=== PATIENT | female | born 1945 | race Two or more races ===

== ENCOUNTER 2017-09-23 22:28 | Emergency (ER) | payer OTHER, MEDICAID ==
[~2017-09-23] VITALS: Ht 152.4 cm; Wt 64.0 kg
[2017-09-23 23:55] LABS: Basophils # (auto) 0.1 uL; Basophils % (auto) 0.8 % (0.0-2.0); Eosinophils # (auto) 0.4 uL; Eosinophils % (auto) 3.5 % (0.0-7.0); Hematocrit 41.8 % (36.0-46.0); Lymphocytes # (auto) 3.7 uL; Lymphocytes % (auto) 32.8 % (10.0-50.0); Mean Corpuscular Hemoglobin 29.6 pg (28.0-32.0); Mean Corpuscular Hgb Conc. 33.6 g/dL (32.0-36.0); Mean Corpuscular Volume 88.2 fL (80.0-100.0); Neutrophils % (auto) 53.9 % (37.0-80.0); Nucleated Red Blood Cells % 0.1 %; Platelet Count (auto) 241 10^3/uL (140-450); Red Blood Cells 4.74 10^6/uL (4.0-5.20); Red Cell Distribution Width 14.2 % (11.8-14.3); White Blood Cell 11.2 10^3/uL (4.4-10.8)
[2017-09-23 23:59] LABS: Alanine Aminotransferase 18 U/L (13-56); Albumin 3.5 g/dL (3.4-5.0); Aspartate Aminotransferase 18 U/L (15-37); BUN/Creatinine Ratio 24.5; Blood Urea Nitrogen 24 mg/dL (7-18); Calcium 9.7 mg/dL (8.5-10.1); Carbon Dioxide 26 mmol/L (21-32); GFR African American 72 mL/min; GFR Non-African American 59 mL/min; Glucose 148 mg/dL (74-106)
[2017-09-24 00:02] LABS: Alkaline Phosphatase 125 U/L (45-117); Bilirubin, Total 0.3 mg/dL (0.2-1.0); Chloride 100 mmol/L (98-107); Potassium 4.8 mmol/L (3.5-5.1); Sodium 134 mmol/L (136-145)
[2017-09-24 00:05] LABS: Anion Gap 8 (5-15)
[2017-09-24 00:10] LABS: INR 0.93 (0.9-1.15); Partial Thromboplastin Time 24.3 sec (22.64-33.71); Prothrombin Time 10.1 sec (9.37-12.3)
[2017-09-24 04:08] VITALS: BP 144/68
== END 2017-09-24 04:13 | disposition left against medical advice (07) ==
LOC: ER 22:28
DX: R07.9 Chest pain, unspecified (principal); R00.2 Palpitations; Z53.21 Procedure and treatment not carried out due to patient leaving prior to being seen by health care provider
CPT/HCPCS: 36415; 71046; 80053; 84484; 85025; 85610; 85730; 93005

== ENCOUNTER 2018-10-08 09:20 | Inpatient (IN) | payer OTHER, MEDICAID ==
[~2018-10-08] VITALS: Ht 152.4 cm; Wt 66.8 kg
[2018-10-08 17:20] LABS: Basophils # (auto) 0 uL; Basophils % (auto) 0.2 % (0.0-2.0); Eosinophils # (auto) 0 uL; Eosinophils % (auto) 0.2 % (0.0-7.0); Hematocrit 41.3 % (36.0-46.0); Hemoglobin 13.7 g/dL (12.2-16.2); Lymphocytes # (auto) 0.5 uL; Lymphocytes % (auto) 5.1 % (10.0-50.0); Mean Corpuscular Hemoglobin 29.5 pg (28.0-32.0); Mean Corpuscular Hgb Conc. 33.2 g/dL (32.0-36.0); Mean Corpuscular Volume 88.7 fL (80.0-100.0); Monocytes # (auto) 0.7 uL; Monocytes % (auto) 7.8 % (0.0-12.0); Neutrophils # (auto) 8.2 uL; Neutrophils % (auto) 86.7 % (37.0-80.0); Platelet Count (auto) 204 10^3/uL (140-450); Red Blood Cells 4.66 10^6/uL (4.0-5.20); White Blood Cell 9.4 10^3/uL (4.4-10.8)
[2018-10-08 17:34] LABS: Albumin 3.4 g/dL (3.4-5.0); Calcium 8.8 mg/dL (8.5-10.1); Potassium 3.9 mmol/L (3.5-5.1)
[2018-10-08 17:37] LABS: BUN/Creatinine Ratio 24.4; Bilirubin, Total 0.5 mg/dL (0.2-1.0); Total Protein 7.9 g/dL (6.4-8.2)
[2018-10-08] MEDS ORDERED: methylPREDNISolone SOD SUCC 125 MG/2 ML VL IV ONE (17:45)
[2018-10-08] MEDS ORDERED: ALBUTEROL SULF 2.5 MG/0.5ML(0.5%) NEB SOLN HHN ONE (17:45)
[2018-10-08] MEDS ORDERED: IPRATROPIUM BROM 0.5 MG/2.5ML INH SOL HHN ONE (17:45)
[2018-10-08] MEDS ORDERED: IPRATROPIUM BROM 0.5 MG/2.5ML INH SOL ONE (17:56)
[2018-10-08] MEDS ORDERED: ACETAMINOPHEN 325 MG TAB PO ONE (19:00)
[2018-10-08] MEDS ORDERED: OSELTAMIVIR 30 MG CAP PO ONE (22:00)
[2018-10-08] MEDS ORDERED: ALBUTEROL SULF 2.5 MG/0.5ML(0.5%) NEB SOLN NEB PRN (22:30)
[2018-10-08] MEDS ORDERED: HYDROcodone-ACET 5/325MG TAB PO PRN (22:30)
[2018-10-08] MEDS ORDERED: SODIUM CHLORIDE 0.9% 1,000 ML IV SCH (22:30)
[2018-10-08] MEDS ORDERED: DEXTROSE (50%) 50ML SYRG IV PRN (22:30)
[2018-10-08] MEDS ORDERED: TEMAZEPAM 15 MG CAP PO PRN (22:30)
[2018-10-08] MEDS ORDERED: DOCUSATE SOD 100 MG CAP PO PRN (22:30)
[2018-10-08] MEDS ORDERED: ONDANSETRON HCL 4 MG/2 ML VIAL IV PRN (22:30)
[2018-10-08] MEDS ORDERED: SODIUM CHLORIDE 0.9% 500 ML IV ONE (22:30)
[2018-10-08 23:22] VITALS: BP 108/58
--- NOTE | 2018-10-08 23:52 | NUR ---
MS admit from ER CASSIDY DSOUZA admitted to MS. Patient oriented to GRACIE DIAZ O[facility], primary RN, unit, room, bed, and unit policies regarding patient care and visiting hours. Patient weighed by bedscale and encouraged to call if they need something. All questions and concerns addressed, patient verbalized understanding. Bed in lowest locked position, call light within reach, side rails up x2. Will continue to monitor Q1hr and PRN.
[2018-10-08 23:55] VITALS: BP 103/36
--- NOTE | 2018-10-08 23:55 | NUR ---
UA sent to lab.
[2018-10-09] MEDS ORDERED: InsuLIN REG 1unit/0.01ml Soln (100units/ml) SC SCH
[2018-10-09] MEDS ORDERED: ACCU-CHEK COMFORT CURVE STRIP VI SCH
[2018-10-09 00:30] LABS: Urine Bacteria NONE SEEN /hpf (None Seen); Urine Blood Negative /uL (Negative); Urine Specific Gravity 1.007 (1.001-1.035); Urine WBC <1 /hpf (0 - 5)
[2018-10-09] MEDS ORDERED: LEVOFLOXACIN 500MG 100 ML IV ONE (01:45)
--- NOTE | 2018-10-09 02:00 | NUR ---
Hospitalist paged CHESTER Mathur called re: patient's elevated glucose and pt requesting cough medicine. Waiting for call back. Continue care.
--- NOTE | 2018-10-09 02:33 | NUR ---
Hospitalist returned call WILLOW ANALYST Keavn returned call, updated on patient status and reason for call, new orders received and read back for verification. Continue care.
[2018-10-09] MEDS ORDERED: DEXTROSE (50%) 50ML SYRG IV PRN (02:45)
[2018-10-09] MEDS ORDERED: METF-371 PO (02:45)
[2018-10-09] MEDS: guaiFENesin-DM 100/10mg/5ml SYR PO PRN ×2 (03:01→12:31)
[2018-10-09] MEDS: InsuLIN REG 1unit/0.01ml Soln (100units/ml) SC SCH ×5 (03:55→21:58)
[2018-10-09] MEDS: ACCU-CHEK COMFORT CURVE STRIP VI SCH ×6 (03:55→23:49)
[2018-10-09] MEDS ORDERED: RANI-226 PO (04:06)
[2018-10-09 04:30] LABS: Basophils # (auto) 0 uL; Basophils % (auto) 0.1 % (0.0-2.0); Eosinophils # (auto) 0 uL; Hematocrit 38.3 % (36.0-46.0); Hemoglobin 12.8 g/dL (12.2-16.2); Lymphocytes # (auto) 0.4 uL; Lymphocytes % (auto) 4.8 % (10.0-50.0); Mean Corpuscular Hgb Conc. 33.3 g/dL (32.0-36.0); Monocytes # (auto) 0.3 uL; Monocytes % (auto) 4.3 % (0.0-12.0); Neutrophils # (auto) 6.7 uL; Neutrophils % (auto) 90.8 % (37.0-80.0); Platelet Count (auto) 180 10^3/uL (140-450); Red Blood Cells 4.26 10^6/uL (4.0-5.20); Red Cell Distribution Width 13.9 % (11.8-14.3); White Blood Cell 7.4 10^3/uL (4.4-10.8)
[2018-10-09 04:47] LABS: Calcium 8.6 mg/dL (8.5-10.1); Potassium 4.2 mmol/L (3.5-5.1)
[2018-10-09 04:49] LABS: BUN/Creatinine Ratio 18.6
[2018-10-09 04:56] VITALS: BP 122/58
--- NOTE | 2018-10-09 07:30 | NUR ---
Patient in bed, awake, oriented x4, coughing noted. No acute distress noted. Family member at bedside.
--- NOTE | 2018-10-09 08:10 | NUR ---
Patient went to the bathroom. Patient back to bed. No untoward incident noted.
[2018-10-09] MEDS: ACETAMINOPHEN 325 MG TAB PO PRN ×2 (08:12→17:56)
--- NOTE | 2018-10-09 08:12 | NUR ---
Temp = 102.4 F. Tylenol PO given as ordered for Temp >100.2 F Addendum: 10/09/18 at 0821 by Britni Beverly RN for Temp >100.4
--- NOTE | 2018-10-09 08:20 | NUR ---
Patient eating breakfast at this time. Family member at bedside.
--- NOTE | 2018-10-09 09:15 | NUR ---
Temp = 99.7 F.
[2018-10-09 09:23] VITALS: BP 121/56
--- NOTE | 2018-10-09 09:35 | NUR ---
Tamiflu 30 mg PO not available in the Pyxis. Called Pharmacy.
--- NOTE | 2018-10-09 09:48 | NUR ---
Dr. Osuna at bedside.
--- NOTE | 2018-10-09 09:53 | NUR ---
Dr. Osuna made aware of patient's elevated temperature. MD ordered to discontinue the NS drip, patient for possible discharge tomorrow.
[2018-10-09] MEDS: OSELTAMIVIR 30 MG CAP PO SCH ×2 (09:58→21:58)
[2018-10-09] MEDS: FAMOTIDINE 20 MG TAB PO SCH (09:58)
[2018-10-09] MEDS ORDERED: FAMOTIDINE 20 MG TAB PO SCH (10:00)
[2018-10-09] MEDS ORDERED: OSELTAMIVIR 75 MG CAP PO SCH (10:00)
[2018-10-09] MEDS ORDERED: LEVOFLOXACIN 500MG 100 ML IV SCH (10:00)
[2018-10-09] MEDS ORDERED: cefTRIAXone 1GM/50ML D5W 50 ML IV ONE (10:30)
[2018-10-09] MEDS ORDERED: DOXYCYCLINE 100MG/250ML 250 ML IV ONE (10:30)
--- NOTE | 2018-10-09 11:54 | NUR ---
Respiratory note: PT ASSESSED FOR PRN MEDNEB TX. HR 83, RR 16, POX 94% ON ROOM AIR. BREATH SOUNDS CLEAR DIMINISHED THROUGHOUT. NO S/S OF RESPIRATORY DISTRESS NOTED. MEDNEB TX NOT INDICATED AT THIS TIME. PT ADVISED TO CALL RT IF FEELING SOB.
--- NOTE | 2018-10-09 12:08 | NUR ---
Accu check = 55 mg/dl. Maury juice given. Addendum: 10/09/18 at 1219 by Britni Beverly RN WRONG ACCU CHECK RESULTS
--- NOTE | 2018-10-09 12:08 | NUR ---
Accu check = 66 mg/dl. Cabell juice given.
--- NOTE | 2018-10-09 12:31 | NUR ---
Robitussin-DM Liquid given for cough as ordered.
[2018-10-09 12:52] VITALS: BP 100/57
[2018-10-09 16:32] VITALS: BP 104/60
--- NOTE | 2018-10-09 17:56 | NUR ---
Temp = 102.4 F, patient stated she has headache. Tylenol PO given as ordered for headache and elevated temperature.
[2018-10-09] MEDS: INSULIN 70/30 1unit/0.01ml Susp (100units/ml) SC SCH (17:57)
--- NOTE | 2018-10-09 19:40 | NUR ---
Opening Shift Note Assumed care of patient, awake and alert. No S/S of distress/SOB or pain. Instructed on POC and to call for assist PRN. Bed in lowest locked position, call light within reach, side rails up x2, fall precautions in place. Will continue to monitor for changes Q1hr and PRN.
[2018-10-09] MEDS ORDERED: LEVOFLOXACIN 250MG 50 ML IV SCH (21:00)
[2018-10-09] MEDS: DOXYCYCLINE 100MG/250ML 250 ML IV SCH (21:58)
[2018-10-09 22:00] VITALS: BP 97/51
--- NOTE | 2018-10-10 00:35 | NUR ---
IV removal IV DC'd with clean sterile technique, catheter fully intact. Pressure dressing applied to site. Patient tolerated well. NOTE: IV leaking
--- NOTE | 2018-10-10 00:40 | NUR ---
IV insertion IV access obtained, via clean sterile technique by inserting 22 gauge catheter on right AC after 1 attempt. IV secured properly. No trauma to site. Patient tolerated well.
[2018-10-10] MEDS: guaiFENesin-DM 100/10mg/5ml SYR PO PRN ×3 (01:08→17:53)
[2018-10-10] MEDS: ACCU-CHEK COMFORT CURVE STRIP VI SCH ×5 (03:52→20:58)
[2018-10-10] MEDS: ACETAMINOPHEN 325 MG TAB PO PRN ×2 (04:40→16:44)
[2018-10-10 04:49] VITALS: BP 116/66
[2018-10-10] MEDS: InsuLIN REG 1unit/0.01ml Soln (100units/ml) SC SCH ×4 (06:34→22:00)
--- NOTE | 2018-10-10 07:45 | NUR ---
Patient in bed, asleep. No acute distress noted.
--- NOTE | 2018-10-10 08:10 | NUR ---
Patient is awake, coughing noted.
[2018-10-10] MEDS: cefTRIAXone 1GM/50ML D5W 50 ML IV SCH (08:36)
[2018-10-10] MEDS: INSULIN 70/30 1unit/0.01ml Susp (100units/ml) SC SCH ×2 (08:41→17:13)
[2018-10-10 09:00] VITALS: BP 94/49
[2018-10-10] MEDS: DOXYCYCLINE 100MG/250ML 250 ML IV SCH ×2 (09:32→22:14)
[2018-10-10] MEDS: FAMOTIDINE 20 MG TAB PO SCH (09:32)
--- NOTE | 2018-10-10 09:32 | NUR ---
Robitussin-DM Liquid given for cough. Family member at bedside.
[2018-10-10] MEDS: OSELTAMIVIR 30 MG CAP PO SCH ×2 (09:34→22:22)
[2018-10-10 11:56] LABS: Basophils # (auto) 0 uL; Basophils % (auto) 0.3 % (0.0-2.0); Eosinophils # (auto) 0 uL; Eosinophils % (auto) 0.1 % (0.0-7.0); Hematocrit 40.3 % (36.0-46.0); Hemoglobin 13.4 g/dL (12.2-16.2); Lymphocytes # (auto) 1.2 uL; Lymphocytes % (auto) 18.5 % (10.0-50.0); Mean Corpuscular Hemoglobin 29.6 pg (28.0-32.0); Mean Corpuscular Hgb Conc. 33.3 g/dL (32.0-36.0); Mean Corpuscular Volume 89.1 fL (80.0-100.0); Monocytes # (auto) 0.6 uL; Monocytes % (auto) 9.6 % (0.0-12.0); Neutrophils # (auto) 4.5 uL; Neutrophils % (auto) 71.5 % (37.0-80.0); Nucleated Red Blood Cells % 0.1 %; Platelet Count (auto) 190 10^3/uL (140-450); Red Blood Cells 4.52 10^6/uL (4.0-5.20); Red Cell Distribution Width 14.1 % (11.8-14.3); White Blood Cell 6.3 10^3/uL (4.4-10.8)
[2018-10-10 12:15] LABS: BUN/Creatinine Ratio 20.7; Calcium 8.1 mg/dL (8.5-10.1)
[2018-10-10 12:41] VITALS: BP 108/52
--- NOTE | 2018-10-10 12:52 | NUR ---
Dr. Osuna at bedside. Patient has cough, periods of elevated temperature. MD to order Sputum Culture, patient for possible discharge tomorrow.
--- NOTE | 2018-10-10 14:12 | NUR ---
Sputum specimen sent to Laboratory for Sputum Culture (w/GS) as ordered.
--- NOTE | 2018-10-10 16:44 | NUR ---
Temp = 102.3 F. Tylenol PO given as ordered.
[2018-10-10 16:55] VITALS: BP 117/60
--- NOTE | 2018-10-10 17:53 | NUR ---
Bellsin DM-Liquid given for cough as ordered. Granddaughter at bedside.
--- NOTE | 2018-10-10 20:58 | NUR ---
BLOOD GLUCOSE IS 123. NO INSULIN REQUIRED.
[2018-10-10 22:00] VITALS: BP 137/51
[2018-10-10] MEDS ORDERED: OSELTAMIVIR 30 MG CAP PO SCH (22:00)
--- NOTE | 2018-10-10 22:27 | NUR ---
Respiratory note: PT SEEN AND ASSESSED FOR PRN MED NEB TX AT 2227. TX NOT INDICATED AT THIS TIME. PT STATES THAT HER BREATHING FEELS GOOD, THAT SHE ONLY HAS A HEADACHE AT THE MOMENT. NO RESPIRATORY DISTRESS NOTED. BREATH SOUNDS WERE CLEAR AND DIMINISHED BILATERALLY. HR 64 RR 18 POX 96% ON ROOM AIR. PT AWARE TO CALL FOR RT IF ANY DISTRESS OCCURS.
[2018-10-11] MEDS: ACCU-CHEK COMFORT CURVE STRIP VI SCH ×4 (01:08→11:03)
[2018-10-11] MEDS: ACETAMINOPHEN 325 MG TAB PO PRN (04:39)
[2018-10-11 05:00] VITALS: BP 91/46
--- NOTE | 2018-10-11 05:00 | NUR ---
IV removal PATIENT COMPLAINING OF PAIN AT IV SITE.
[2018-10-11] MEDS: InsuLIN REG 1unit/0.01ml Soln (100units/ml) SC SCH ×2 (06:44→11:03)
--- NOTE | 2018-10-11 07:02 | NUR ---
AFTER MULTIPLE ATTEMPTS, IV WAS UNABLE TO BE REINSERTED.
--- NOTE | 2018-10-11 07:10 | NUR ---
Received patient with no IV access, needs to insert Midline. Charge Nurse is aware.
[2018-10-11 07:25] LABS: Basophils # (auto) 0 uL; Basophils % (auto) 0.2 % (0.0-2.0); Eosinophils # (auto) 0 uL; Eosinophils % (auto) 0.4 % (0.0-7.0); Hematocrit 43.8 % (36.0-46.0); Hemoglobin 14.3 g/dL (12.2-16.2); Lymphocytes # (auto) 1.3 uL; Lymphocytes % (auto) 19.6 % (10.0-50.0); Mean Corpuscular Hemoglobin 29.3 pg (28.0-32.0); Mean Corpuscular Hgb Conc. 32.7 g/dL (32.0-36.0); Mean Corpuscular Volume 89.5 fL (80.0-100.0); Monocytes # (auto) 0.7 uL; Monocytes % (auto) 10.5 % (0.0-12.0); Neutrophils # (auto) 4.7 uL; Neutrophils % (auto) 69.3 % (37.0-80.0); Nucleated Red Blood Cells % 0.4 %; Platelet Count (auto) 190 10^3/uL (140-450); Red Blood Cells 4.89 10^6/uL (4.0-5.20); Red Cell Distribution Width 14.3 % (11.8-14.3); White Blood Cell 6.8 10^3/uL (4.4-10.8)
--- NOTE | 2018-10-11 07:25 | NUR ---
Paged the PICC Line/Midline RN.
[2018-10-11 07:41] LABS: Calcium 8.3 mg/dL (8.5-10.1); Magnesium 2.2 mg/dL (1.6-2.6); Potassium 3.8 mmol/L (3.5-5.1)
[2018-10-11 07:43] LABS: BUN/Creatinine Ratio 16.3
--- NOTE | 2018-10-11 07:45 | NUR ---
Patient with coughing noted.
[2018-10-11] MEDS: INSULIN 70/30 1unit/0.01ml Susp (100units/ml) SC SCH (08:04)
--- NOTE | 2018-10-11 08:43 | NUR ---
PICC Line NIKKO Rodriguez called back.
--- NOTE | 2018-10-11 08:43 | NUR ---
Sluice Tender unable to get the call connected to Dr. Osuna's office.
[2018-10-11 09:00] VITALS: BP 95/52
[2018-10-11] MEDS: cefTRIAXone 1GM/50ML D5W 50 ML IV SCH (09:00)
--- NOTE | 2018-10-11 09:20 | NUR ---
Dr. Osuna at bedside. spoke with the patient and daughter. Dr. Osuna ordered not to insert IV line, will convert IV antibiotics to pill form. MD to discharge the patient today.
[2018-10-11] MEDS: DOXYCYCLINE 100MG/250ML 250 ML IV SCH (09:44)
[2018-10-11] MEDS: guaiFENesin-DM 100/10mg/5ml SYR PO PRN (09:47)
[2018-10-11] MEDS: OSELTAMIVIR 30 MG CAP PO SCH (09:48)
[2018-10-11] MEDS: FAMOTIDINE 20 MG TAB PO SCH (09:48)
--- NOTE | 2018-10-11 09:50 | NUR ---
Liz DM-Liquid given for cough. Daughter to warp picker the patient around 1100 am today. Patient has discharge orders for home.
--- NOTE | 2018-10-11 11:45 | NUR ---
RT NOTE: WENT TO PTS ROOM TO ASSESS FOR PRN BREATHING TX, PT SLEEPING AT THIS TIME. HR 83, SPO2 93% ON RA, RR 16, BREATH SOUNDS CLEAR. NO INDICATION FOR TX AT THIS TIME. WILL CONTINUE TO MONITOR PT.
[2018-10-11 12:55] VITALS: BP 95/53
--- NOTE | 2018-10-11 13:30 | NUR ---
Discharge instructions given as ordered. Encourage to follow up with PMD as instructed. All questions and concerns addressed. Patient verbalized understanding. Medication reconciliation form completed and copy given to patient. No IV line access when patient is received from production supervisor off shift RN. Patient taken to vehicle via wheelchair with all personal belongings, accompanied by staff and family member. Patient on disposable mask for coughing/Influenza A. No distress noted at time of departure.
== END 2018-10-11 13:40 | disposition home or self-care (01) | DRG 195 ==
LOC: ER 09:20 → OVERFLOW 22:52 → EAST 23:56
PROVIDERS: ADMIT Nurse Practitioner; ATTEND Internal Medicine Geriatric Medicine
DX: J10.00 Influenza due to other identified influenza virus with unspecified type of pneumonia (principal); I10 Essential (primary) hypertension; E11.65 Type 2 diabetes mellitus with hyperglycemia; E78.5 Hyperlipidemia, unspecified; I70.0 Atherosclerosis of aorta; M54.9 Dorsalgia, unspecified; Z90.710 Acquired absence of both cervix and uterus
CPT/HCPCS: 36415; 71046; 80048; 80053; 81001; 82962; 83605; 83735; 83880; 84484; 85025; 87040; 87070; 87205; 87804; 93005; 94640; 94761; 96374; 99291; G0378; G9035; J0696; J1815; J1956; J3490

== ENCOUNTER 2020-08-04 11:10 | Emergency (ER) | payer OTHER, MEDICAID ==
[~2020-08-04] VITALS: Ht 154.9 cm; Wt 70.3 kg
[~2020-08-04 11:10] MED LIST: METF-371 PO; RANI-226 PO
[2020-08-04 11:17] VITALS: BP 145/70
[2020-08-04 14:26] LABS: Basophils # (auto) 0.1 10 ^3/uL (0-0.2); Basophils % (auto) 0.8 % (0.0-2.0); Eosinophils # (auto) 0.3 10 ^3/uL (0-0.8); Hematocrit 43.2 % (36.0-46.0); Hemoglobin 14.2 g/dL (12.2-16.2); Lymphocytes # (auto) 2.4 10 ^3/uL (0.4-5.4); Lymphocytes % (auto) 21.3 % (10.0-50.0); Mean Corpuscular Hemoglobin 29.4 pg (28.0-32.0); Mean Corpuscular Hgb Conc. 32.8 g/dL (32.0-36.0); Mean Corpuscular Volume 89.7 fL (80.0-100.0); Monocytes # (auto) 0.9 10 ^3/uL (0-1.3); Monocytes % (auto) 7.9 % (0.0-12.0); Neutrophils # (auto) 7.5 10 ^3/uL (1.6-8.6); Platelet Count (auto) 389 10^3/uL (140-450); Red Blood Cells 4.82 10^6/uL (4.0-5.20); White Blood Cell 11.2 10^3/uL (4.4-10.8)
[2020-08-04 14:49] LABS: Chloride 106 mmol/L (98-107); Potassium 4.3 mmol/L (3.5-5.1); Sodium 140 mmol/L (136-145)
[2020-08-04 14:53] LABS: Alanine Aminotransferase 28 U/L (13-56); Albumin 2.9 g/dL (3.4-5.0); Anion Gap 9 (5-15); Aspartate Aminotransferase 18 U/L (15-37); BUN/Creatinine Ratio 19.3; Blood Urea Nitrogen 17 mg/dL (7-18); Calcium 8.6 mg/dL (8.5-10.1); Carbon Dioxide 25 mmol/L (21-32); GFR African American 80 mL/min; GFR Non-African American 66 mL/min; Glucose 95 mg/dL (74-106)
[2020-08-04 15:06] LABS: Alkaline Phosphatase 109 U/L (45-117); Bilirubin, Total 0.7 mg/dL (0.2-1.0); Total Protein 7.7 g/dL (6.4-8.2)
== END 2020-08-04 15:24 | disposition left against medical advice (07) ==
LOC: ER 11:10
DX: R06.02 Shortness of breath (principal); R53.1 Weakness; E11.9 Type 2 diabetes mellitus without complications; I10 Essential (primary) hypertension; E78.5 Hyperlipidemia, unspecified; Z20.828 Contact with and (suspected) exposure to other viral communicable diseases; Z90.710 Acquired absence of both cervix and uterus
CPT/HCPCS: 36415; 71045; 80053; 84484; 85025; 87426; 93005

== ENCOUNTER 2021-10-05 08:34 | Emergency (ER) | payer OTHER, MEDICAID ==
[~2021-10-05] VITALS: Ht 152.4 cm; Wt 68.0 kg
[2021-10-05] MEDS ORDERED: SODIUM CHLORIDE 0.9% 1,000 ML IV ONE (10:00)
[2021-10-05 10:27] LABS: Basophils # (auto) 0 10 ^3/uL (0-0.2); Basophils % (auto) 0.5 % (0.0-2.0); Eosinophils # (auto) 0.1 10 ^3/uL (0-0.8); Eosinophils % (auto) 1.1 % (0.0-7.0); Hematocrit 40.6 % (36.0-46.0); Hemoglobin 13.5 g/dL (12.2-16.2); Lymphocytes # (auto) 1.7 10 ^3/uL (0.4-5.4); Lymphocytes % (auto) 20.4 % (10.0-50.0); Mean Corpuscular Hemoglobin 30.3 pg (28.0-32.0); Mean Corpuscular Hgb Conc. 33.3 g/dL (32.0-36.0); Monocytes # (auto) 0.4 10 ^3/uL (0-1.3); Monocytes % (auto) 5.4 % (0.0-12.0); Neutrophils % (auto) 72.6 % (37.0-80.0); Red Blood Cells 4.46 10^6/uL (4.0-5.20); Red Cell Distribution Width 16.9 % (11.8-14.3); White Blood Cell 8.2 10^3/uL (4.4-10.8)
[2021-10-05 10:45] LABS: Albumin 3.3 g/dL (3.4-5.0); Calcium 8.8 mg/dL (8.5-10.1); Potassium 4.4 mmol/L (3.5-5.1)
[2021-10-05 10:52] LABS: BUN/Creatinine Ratio 18.8; Bilirubin, Total 1.3 mg/dL (0.2-1.0)
[2021-10-05] MEDS ORDERED: SPIRONOLACTONE 25 MG TAB PO ONE (13:15)
[2021-10-05] MEDS ORDERED: FUROSEMIDE 40 MG/4 ML VIAL IV ONE (13:15)
[2021-10-05 14:30] LABS: Urine Bacteria FEW /hpf (None Seen); Urine Blood Negative /uL (Negative); Urine Specific Gravity 1.004 (1.001-1.035); Urine WBC 2 /hpf (0 - 5)
[2021-10-05 16:35] VITALS: BP 105/62
== END 2021-10-05 16:47 | disposition home or self-care (01) ==
LOC: ER 08:34
DX: E11.65 Type 2 diabetes mellitus with hyperglycemia (principal); R60.9 Edema, unspecified; J84.10 Pulmonary fibrosis, unspecified; E44.1 Mild protein-calorie malnutrition; R09.89 Other specified symptoms and signs involving the circulatory and respiratory systems; E11.9 Type 2 diabetes mellitus without complications; E78.5 Hyperlipidemia, unspecified; I10 Essential (primary) hypertension; Z90.710 Acquired absence of both cervix and uterus; Z68.29 Body mass index [BMI] 29.0-29.9, adult
CPT/HCPCS: 36415; 71045; 80053; 81001; 83735; 83880; 84443; 84484; 85025; 93005; 96361; 96374; 99285; J1940; J7030

== ENCOUNTER 2021-12-13 03:46 | Inpatient (IN) | payer OTHER, MEDICAID ==
[~2021-12-13] VITALS: Ht 154.9 cm; Wt 65.4 kg
[2021-12-13 05:13] LABS: Basophils # (auto) 0 10 ^3/uL (0-0.2); Basophils % (auto) 0.5 % (0.0-2.0); Eosinophils # (auto) 0.1 10 ^3/uL (0-0.8); Eosinophils % (auto) 0.9 % (0.0-7.0); Hemoglobin 12.7 g/dL (12.2-16.2); Lymphocytes # (auto) 1.1 10 ^3/uL (0.4-5.4); Lymphocytes % (auto) 12.6 % (10.0-50.0); Mean Corpuscular Hemoglobin 30.1 pg (28.0-32.0); Mean Corpuscular Hgb Conc. 33.5 g/dL (32.0-36.0); Mean Corpuscular Volume 89.9 fL (80.0-100.0); Monocytes # (auto) 0.4 10 ^3/uL (0-1.3); Neutrophils # (auto) 7.1 10 ^3/uL (1.6-8.6); Nucleated Red Blood Cells % 0.1 %; Red Blood Cells 4.22 10^6/uL (4.0-5.20); Red Cell Distribution Width 18.4 % (11.8-14.3); White Blood Cell 8.8 10^3/uL (4.4-10.8)
[2021-12-13 05:27] LABS: INR 1.12 (0.9-1.15)
[2021-12-13 05:29] LABS: BUN/Creatinine Ratio 24.8; Potassium 4.7 mmol/L (3.5-5.1)
[2021-12-13 05:32] LABS: Bilirubin, Total 1.1 mg/dL (0.2-1.0); Total Protein 6.4 g/dL (6.4-8.2)
[2021-12-13 08:32] LABS: Urine Bacteria NONE SEEN /hpf (None Seen); Urine Blood Negative /uL (Negative); Urine Specific Gravity 1.009 (1.001-1.035); Urine WBC 1 /hpf (0 - 5)
[2021-12-13] MEDS ORDERED: MYCO500T PO (10:10)
[2021-12-13] MEDS ORDERED: CHOL20007 PO (10:10)
[2021-12-13] MEDS ORDERED: ASPI-543 PO (10:17)
[2021-12-13] MEDS ORDERED: ATOR20TA50 PO (10:17)
[2021-12-13] MEDS ORDERED: PIO30T PO (10:19)
[2021-12-13] MEDS ORDERED: MONT-8 PO (10:23)
[2021-12-13] MEDS ORDERED: SPIR25TA8 PO (10:23)
[2021-12-13] MEDS ORDERED: FURO1TAB31 PO (10:23)
[2021-12-13] MEDS ORDERED: NITROGLYCERIN 0.4 MG SL TAB SL PRN (11:15)
[2021-12-13] MEDS ORDERED: MORPHINE SULFATE INJECTION 2 MG/ML SYRG IV PRN ×2 (11:15→13:30)
[2021-12-13] MEDS ORDERED: DOCUSATE SOD 100 MG CAP PO PRN (13:30)
[2021-12-13] MEDS ORDERED: ALBUTEROL SULF 2.5 MG/0.5ML(0.5%) NEB SOLN NEB PRN (13:30)
[2021-12-13] MEDS ORDERED: ONDANSETRON HCL 4 MG/2 ML VIAL IV PRN (13:30)
[2021-12-13] MEDS ORDERED: LACTULOSE 20Gm/30ML SOLN PO PRN (13:30)
[2021-12-13] MEDS ORDERED: HYDROcodone-ACET 5/325MG TAB PO PRN (13:30)
[2021-12-13] MEDS ORDERED: ACETAMINOPHEN 325 MG TAB PO PRN (13:30)
[2021-12-13] MEDS ORDERED: hydrALAZINE HCL 20 MG/ML VL IV PRN (13:30)
[2021-12-13] MEDS ORDERED: IPRATROPIUM BROM 0.5 MG/2.5ML INH SOL NEB SCH (14:00)
[2021-12-13] MEDS: SODIUM CHLORIDE 0.9% 1,000 ML IV SCH (14:23)
[2021-12-13] MEDS: AZITHROMYCIN 500MG/ 250ML 250 ML IV SCH (14:24)
[2021-12-13] MEDS: cefTRIAXone 1GM/50ML D5W 50 ML IV SCH (14:24)
[2021-12-13] MEDS ORDERED: SODIUM CHLORIDE 0.9% 1,000 ML IV ONE (15:15)
[2021-12-13 17:00] VITALS: BP 122/63
[2021-12-13] MEDS: FUROSEMIDE 20 MG/2 ML VIAL IV SCH (17:18)
[2021-12-13 19:29] LABS: INR 1.1 (0.9-1.15); Partial Thromboplastin Time 25.1 sec (23.6-33.0)
[2021-12-13 20:00] VITALS: BP 103/63
[2021-12-13 20:09] LABS: Magnesium 1.8 mg/dL (1.6-2.6); Phosphorus 3.8 mg/dL (2.5-4.90)
[2021-12-13] MEDS ORDERED: BUDESONIDE (INHALATION) 0.5 MG/2 ML NEB NEB SCH (22:00)
[2021-12-13 22:43] VITALS: BP 103/63
[2021-12-13] MEDS: ATORVASTATIN 20 MG TAB PO SCH (23:19)
[2021-12-14] VITALS (8 sets, daily range): BP systolic 94–105; BP diastolic 48–63
[2021-12-14 06:12] LABS: Basophils # (auto) 0 10 ^3/uL (0-0.2); Basophils % (auto) 0.4 % (0.0-2.0); Eosinophils # (auto) 0.1 10 ^3/uL (0-0.8); Eosinophils % (auto) 1.8 % (0.0-7.0); Hematocrit 34.5 % (36.0-46.0); Hemoglobin 11.8 g/dL (12.2-16.2); Lymphocytes # (auto) 1.3 10 ^3/uL (0.4-5.4); Lymphocytes % (auto) 16.7 % (10.0-50.0); Mean Corpuscular Hemoglobin 30.7 pg (28.0-32.0); Mean Corpuscular Hgb Conc. 34.3 g/dL (32.0-36.0); Mean Corpuscular Volume 89.4 fL (80.0-100.0); Monocytes # (auto) 0.7 10 ^3/uL (0-1.3); Monocytes % (auto) 8.8 % (0.0-12.0); Neutrophils # (auto) 5.8 10 ^3/uL (1.6-8.6); Neutrophils % (auto) 72.3 % (37.0-80.0); Red Blood Cells 3.86 10^6/uL (4.0-5.20); Red Cell Distribution Width 18.3 % (11.8-14.3); White Blood Cell 8.1 10^3/uL (4.4-10.8)
[2021-12-14] MEDS: FUROSEMIDE 20 MG/2 ML VIAL IV SCH ×2 (06:13→18:00)
[2021-12-14] MEDS: cefTRIAXone 1GM/50ML D5W 50 ML IV SCH ×2 (06:14→09:50)
[2021-12-14] MEDS: SODIUM CHLORIDE 0.9% 1,000 ML IV SCH ×2 (06:15→22:42)
[2021-12-14 06:28] LABS: INR 1.06 (0.9-1.15); Partial Thromboplastin Time 26.2 sec (23.6-33.0)
[2021-12-14 06:33] LABS: Potassium 4.9 mmol/L (3.5-5.1)
[2021-12-14 06:47] LABS: Albumin 2.7 g/dL (3.4-5.0); BUN/Creatinine Ratio 22.6; Bilirubin, Total 0.7 mg/dL (0.2-1.0); CRP High Sensitivity 0.34 mg/dL (< 0.3); Calcium 8.6 mg/dL (8.5-10.1); Magnesium 1.8 mg/dL (1.6-2.6); Phosphorus 3.9 mg/dL (2.5-4.90); Total Protein 6.2 g/dL (6.4-8.2)
[2021-12-14 06:58] LABS: Thyroid Stimulating Hormone 1.27 uIU/mL (0.358-3.74)
[2021-12-14 08:10] LABS: Urine Bacteria NONE SEEN /hpf (None Seen); Urine Blood Negative /uL (Negative); Urine Specific Gravity 1.004 (1.001-1.035); Urine WBC 4 /hpf (0 - 5)
[2021-12-14 08:14] LABS: Alcohol, Urine < 3.0 mg/dL (0-10); Amphetamine Screen, Urine NEGATIVE (NEGATIVE); Barbiturate Scree,Urine NEGATIVE (NEGATIVE); Benzodiazephine Screen, Urine NEGATIVE (NEGATIVE); Cannabinoid Screen, Urine NEGATIVE (NEGATIVE); Cocaine Screen, Urine NEGATIVE (NEGATIVE); Opiate Scree,Urine NEGATIVE (NEGATIVE); Phencyclidine Screen, Urine NEGATIVE (NEGATIVE); Protein, Urine < 5 mg/dL (0.0-11.9)
[2021-12-14] MEDS ORDERED: ASPirin 81 mg TAB PO SCH (10:00)
[2021-12-14] MEDS: ENOXAPARIN SOD 40 MG/0.4 ML SYRINGE SC SCH (10:00)
[2021-12-14] MEDS ORDERED: FAMOTIDINE (10MG/ML) 2ML VL IV SCH (10:00)
[2021-12-14] MEDS: AZITHROMYCIN 500MG/ 250ML 250 ML IV SCH (10:30)
[2021-12-14] MEDS ORDERED: DEXTROSE (50%) 50ML SYRG IV PRN (18:15)
[2021-12-14] MEDS ORDERED: InsuLIN REG 1unit/0.01ml Soln (100units/ml) SC ONE (18:45)
[2021-12-14] MEDS ORDERED: guaiFENesin-CODEINE Liq 5 ML UD PO PRN (18:45)
[2021-12-14] MEDS: ALBUTEROL SULF 2.5 MG/0.5ML(0.5%) NEB SOLN NEB SCH (19:16)
[2021-12-14] MEDS: methylPREDNISolone SOD SUCC 40 MG/ML VL IV SCH (22:00)
[2021-12-14] MEDS: InsuLIN REG 1unit/0.01ml Soln (100units/ml) SC SCH (22:39)
[2021-12-14] MEDS: ATORVASTATIN 20 MG TAB PO SCH (22:39)
[2021-12-14] MEDS: MYCOPHENOLATE 500 MG TAB PO SCH (22:40)
[2021-12-14] MEDS: ACCU-CHEK COMFORT CURVE STRIP VI SCH (22:41)
[2021-12-15] MEDS: ALBUTEROL SULF 2.5 MG/0.5ML(0.5%) NEB SOLN NEB SCH ×4 (00:20→19:15)
[2021-12-15 03:30] VITALS: BP 105/60
[2021-12-15 05:52] LABS: Basophils # (auto) 0.1 10 ^3/uL (0-0.2); Basophils % (auto) 1.1 % (0.0-2.0); Eosinophils # (auto) 0.5 10 ^3/uL (0-0.8); Eosinophils % (auto) 5.9 % (0.0-7.0); Hematocrit 32.6 % (36.0-46.0); Hemoglobin 11.4 g/dL (12.2-16.2); Lymphocytes # (auto) 2.6 10 ^3/uL (0.4-5.4); Lymphocytes % (auto) 28.2 % (10.0-50.0); Mean Corpuscular Hemoglobin 31.3 pg (28.0-32.0); Mean Corpuscular Hgb Conc. 35.1 g/dL (32.0-36.0); Monocytes # (auto) 0.9 10 ^3/uL (0-1.3); Monocytes % (auto) 9.8 % (0.0-12.0); Nucleated Red Blood Cells % 0.1 %; Red Blood Cells 3.66 10^6/uL (4.0-5.20); Red Cell Distribution Width 18.3 % (11.8-14.3); White Blood Cell 9.1 10^3/uL (4.4-10.8)
[2021-12-15 06:03] LABS: Albumin 2.7 g/dL (3.4-5.0); Calcium 8.5 mg/dL (8.5-10.1); Potassium 4.4 mmol/L (3.5-5.1)
[2021-12-15 06:06] LABS: BUN/Creatinine Ratio 25.8; Bilirubin, Total 0.6 mg/dL (0.2-1.0)
[2021-12-15] MEDS: FUROSEMIDE 20 MG/2 ML VIAL IV SCH ×2 (07:00→17:11)
[2021-12-15] MEDS: InsuLIN REG 1unit/0.01ml Soln (100units/ml) SC SCH ×4 (07:00→21:33)
[2021-12-15] MEDS: ACCU-CHEK COMFORT CURVE STRIP VI SCH ×4 (07:34→21:36)
[2021-12-15 08:00] VITALS: BP 103/63
[2021-12-15 09:06] VITALS: BP 108/57
[2021-12-15] MEDS: cefTRIAXone 1GM/50ML D5W 50 ML IV SCH (09:30)
[2021-12-15] MEDS: AZITHROMYCIN 500MG/ 250ML 250 ML IV SCH (10:00)
[2021-12-15] MEDS: methylPREDNISolone SOD SUCC 40 MG/ML VL IV SCH ×2 (10:00→21:32)
[2021-12-15] MEDS: MYCOPHENOLATE 500 MG TAB PO SCH ×2 (10:30→21:36)
[2021-12-15] MEDS: ENOXAPARIN SOD 40 MG/0.4 ML SYRINGE SC SCH (11:26)
[2021-12-15] MEDS: ASPirin-EC 81 mg tab PO SCH (11:26)
[2021-12-15] MEDS: SPIRONOLACTONE 25 MG TAB PO SCH (11:27)
[2021-12-15] MEDS: MONTELUKAST SODIUM 10 MG TAB PO SCH (11:29)
[2021-12-15 13:00] VITALS: BP 108/58
[2021-12-15] MEDS: SODIUM CHLORIDE 0.9% 1,000 ML IV SCH (15:59)
[2021-12-15 17:01] VITALS: BP 112/65
[2021-12-15] MEDS: ATORVASTATIN 20 MG TAB PO SCH (21:32)
[2021-12-15 22:00] VITALS: BP 111/71
[2021-12-16] MEDS: ALBUTEROL SULF 2.5 MG/0.5ML(0.5%) NEB SOLN NEB SCH ×3 (00:12→15:49)
[2021-12-16 05:00] VITALS: BP 129/79
[2021-12-16] MEDS: FUROSEMIDE 20 MG/2 ML VIAL IV SCH (06:29)
[2021-12-16] MEDS: InsuLIN REG 1unit/0.01ml Soln (100units/ml) SC SCH ×2 (06:31→12:14)
[2021-12-16] MEDS: ACCU-CHEK COMFORT CURVE STRIP VI SCH ×2 (06:34→12:12)
[2021-12-16 08:00] VITALS: BP 125/70
[2021-12-16 08:42] LABS: Basophils # (auto) 0 10 ^3/uL (0-0.2); Basophils % (auto) 0.4 % (0.0-2.0); Eosinophils # (auto) 0 10 ^3/uL (0-0.8); Eosinophils % (auto) 0.2 % (0.0-7.0); Hematocrit 36.6 % (36.0-46.0); Hemoglobin 12.4 g/dL (12.2-16.2); Lymphocytes # (auto) 0.7 10 ^3/uL (0.4-5.4); Lymphocytes % (auto) 8.4 % (10.0-50.0); Mean Corpuscular Hemoglobin 30.5 pg (28.0-32.0); Mean Corpuscular Hgb Conc. 33.9 g/dL (32.0-36.0); Mean Corpuscular Volume 89.8 fL (80.0-100.0); Monocytes # (auto) 0.3 10 ^3/uL (0-1.3); Monocytes % (auto) 2.9 % (0.0-12.0); Neutrophils # (auto) 7.5 10 ^3/uL (1.6-8.6); Neutrophils % (auto) 88.1 % (37.0-80.0); Nucleated Red Blood Cells % 0.1 %; Red Blood Cells 4.08 10^6/uL (4.0-5.20); Red Cell Distribution Width 18.4 % (11.8-14.3); White Blood Cell 8.5 10^3/uL (4.4-10.8)
[2021-12-16 09:00] LABS: Albumin 2.8 g/dL (3.4-5.0); Calcium 8.5 mg/dL (8.5-10.1); Potassium 4.2 mmol/L (3.5-5.1)
[2021-12-16 09:02] VITALS: BP 125/70
[2021-12-16 09:04] LABS: BUN/Creatinine Ratio 20.2; Total Protein 6.6 g/dL (6.4-8.2)
[2021-12-16] MEDS: cefTRIAXone 1GM/50ML D5W 50 ML IV SCH (09:45)
[2021-12-16] MEDS: SPIRONOLACTONE 25 MG TAB PO SCH (09:49)
[2021-12-16] MEDS: ASPirin-EC 81 mg tab PO SCH (09:49)
[2021-12-16] MEDS: MONTELUKAST SODIUM 10 MG TAB PO SCH (09:49)
[2021-12-16] MEDS: methylPREDNISolone SOD SUCC 40 MG/ML VL IV SCH (09:50)
[2021-12-16] MEDS: ENOXAPARIN SOD 40 MG/0.4 ML SYRINGE SC SCH (09:50)
[2021-12-16] MEDS: MYCOPHENOLATE 500 MG TAB PO SCH (09:57)
[2021-12-16] MEDS: AZITHROMYCIN 500MG/ 250ML 250 ML IV SCH (10:46)
[2021-12-16 13:00] VITALS: BP 96/63
[2021-12-16] MEDS ORDERED: GUAI100S6 PO ×2 (13:02→13:03)
[2021-12-16] MEDS ORDERED: PRED20TA2 PO (13:04)
[2021-12-16] MEDS ORDERED: PROM25TA5 PO (13:04)
[2021-12-16 14:26] VITALS: BP 96/63
== END 2021-12-16 16:30 | disposition home health service (06) | DRG 196 ==
LOC: ER 03:46 → EDBD 03:46 → OVERFLOW 11:06 → WEST WING 15:49 → TELE-WESTW 17:51
PROVIDERS: ADMIT Hospitalist; ATTEND Internal Medicine
PROC: 05HF33Z Insertion of Infusion Device into Left Cephalic Vein, Percutaneous Approach (ICD-10-PCS; principal; 2021-12-15)
PROC: B54NZZA Ultrasonography of Left Upper Extremity Veins, Guidance (ICD-10-PCS; 2021-12-15)
DX: J84.9 Interstitial pulmonary disease, unspecified (principal); J96.21 Acute and chronic respiratory failure with hypoxia; I50.43 Acute on chronic combined systolic (congestive) and diastolic (congestive) heart failure; I13.0 Hypertensive heart and chronic kidney disease with heart failure and stage 1 through stage 4 chronic kidney disease, or unspecified chronic kidney disease; E87.1 Hypo-osmolality and hyponatremia; J98.11 Atelectasis; N18.32 Chronic kidney disease, stage 3b; I27.9 Pulmonary heart disease, unspecified; J84.10 Pulmonary fibrosis, unspecified; Z20.822 Contact with and (suspected) exposure to COVID-19; E11.40 Type 2 diabetes mellitus with diabetic neuropathy, unspecified; E11.22 Type 2 diabetes mellitus with diabetic chronic kidney disease; E11.65 Type 2 diabetes mellitus with hyperglycemia; E11.21 Type 2 diabetes mellitus with diabetic nephropathy; E78.5 Hyperlipidemia, unspecified; Z79.899 Other long term (current) drug therapy; Z83.3 Family history of diabetes mellitus; Z90.710 Acquired absence of both cervix and uterus; Z79.84 Long term (current) use of oral hypoglycemic drugs
CPT/HCPCS: 36415; 70450; 71045; 71250; 74176; 80053; 80061; 80307; 81001; 82550; 82728; 82962; 83036; 83615; 83690; 83735; 83880; 83970; 84100; 84156; 84443; 84484; 85025; 85379; 85610; 85652; 85730; 86141; 87040; 87070; 87086; 87205; 93005; 93306; 94640; 96365; 96368; G0378; J0696; J1815; J2405; J3490; J7517

== ENCOUNTER 2022-04-26 02:28 | Inpatient (IN) | payer OTHER, MEDICAID ==
[~2022-04-26] VITALS: Ht 167.6 cm; Wt 71.3 kg
[~2022-04-26 02:28] MED LIST changes: +ASPI-543 PO; +ATOR20TA50 PO; +CHOL20007 PO; +FURO1TAB31 PO; +GUAI100S6 PO; +MONT-8 PO; +MYCO500T PO; +PIO30T PO; +PRED20TA2 PO; +PROM25TA5 PO; +SPIR25TA8 PO
[2022-04-26 03:46] LABS: Basophils # (auto) 0 10 ^3/uL (0-0.2); Basophils % (auto) 0.3 % (0.0-2.0); Eosinophils # (auto) 0 10 ^3/uL (0-0.8); Eosinophils % (auto) 0.2 % (0.0-7.0); Hematocrit 37.1 % (36.0-46.0); Hemoglobin 11.6 g/dL (12.2-16.2); Lymphocytes # (auto) 0.4 10 ^3/uL (0.4-5.4); Lymphocytes % (auto) 5.2 % (10.0-50.0); Mean Corpuscular Hemoglobin 30.8 pg (28.0-32.0); Mean Corpuscular Hgb Conc. 31.3 g/dL (32.0-36.0); Mean Corpuscular Volume 98.3 fL (80.0-100.0); Monocytes # (auto) 0.1 10 ^3/uL (0-1.3); Monocytes % (auto) 2.1 % (0.0-12.0); Neutrophils # (auto) 6.4 10 ^3/uL (1.6-8.6); Neutrophils % (auto) 92.2 % (37.0-80.0); Nucleated Red Blood Cells % 0.1 %; Red Blood Cells 3.77 10^6/uL (4.0-5.20); Red Cell Distribution Width 17.7 % (11.8-14.3); White Blood Cell 6.9 10^3/uL (4.4-10.8)
[2022-04-26] MEDS ORDERED: FUROSEMIDE 100 MG/10ML VIAL IV ONE (05:15)
[2022-04-26 05:27] LABS: BUN/Creatinine Ratio 44.9; Calcium 8.3 mg/dL (8.5-10.1); Potassium 4.8 mmol/L (3.5-5.1)
[2022-04-26 05:30] LABS: Bilirubin, Total 0.9 mg/dL (0.2-1.0); Total Protein 5.9 g/dL (6.4-8.2)
[2022-04-26 05:39] LABS: Lactic Acid w/Reflex 2.2 mmol/L (0.4-2.0)
[2022-04-26] MEDS ORDERED: cefTRIAXone 1GM/50ML D5W 50 ML IV ONE (06:30)
[2022-04-26 07:39] LABS: Urine Bacteria FEW /hpf (None Seen); Urine Blood Negative /uL (Negative); Urine Hyaline Cast FEW /lpf (0 - 2); Urine Specific Gravity 1.006 (1.001-1.035); Urine WBC <1 /hpf (0 - 5)
[2022-04-26 07:43] LABS: Alcohol, Urine < 3.0 mg/dL (0-10); Amphetamine Screen, Urine NEGATIVE (NEGATIVE); Barbiturate Scree,Urine NEGATIVE (NEGATIVE); Benzodiazephine Screen, Urine NEGATIVE (NEGATIVE); Cannabinoid Screen, Urine NEGATIVE (NEGATIVE); Cocaine Screen, Urine NEGATIVE (NEGATIVE); Opiate Scree,Urine NEGATIVE (NEGATIVE); Phencyclidine Screen, Urine NEGATIVE (NEGATIVE)
[2022-04-26] MEDS ORDERED: MORPHINE SULFATE INJ 2 MG/ml SYRG IV PRN (08:30)
[2022-04-26] MEDS ORDERED: ACETAMINOPHEN 325 MG TAB PO PRN (08:30)
[2022-04-26] MEDS ORDERED: ONDANSETRON HCL 4 MG/2 ML VIAL IV PRN (08:30)
[2022-04-26] MEDS ORDERED: DOCUSATE SOD 100 MG CAP PO PRN (08:30)
[2022-04-26] MEDS: AZITHROMYCIN 500MG/ 250ML 250 ML IV SCH (10:07)
[2022-04-26] MEDS: ENOXAPARIN SOD 40 MG/0.4 ML SYRINGE SC SCH (10:07)
[2022-04-26 23:17] VITALS: BP 109/61
[2022-04-27] MEDS ORDERED: METF-372 PO (02:06)
[2022-04-27] MEDS ORDERED: FURO40TA4 PO (02:06)
[2022-04-27] MEDS ORDERED: PRED10TA PO (02:06)
[2022-04-27] MEDS ORDERED: PIOG1TAB51 PO (02:06)
[2022-04-27 05:00] VITALS: BP 130/69
[2022-04-27 07:11] LABS: Basophils # (auto) 0 10 ^3/uL (0-0.2); Basophils % (auto) 0.4 % (0.0-2.0); Eosinophils # (auto) 0.2 10 ^3/uL (0-0.8); Eosinophils % (auto) 3.6 % (0.0-7.0); Hematocrit 34.7 % (36.0-46.0); Hemoglobin 11.1 g/dL (12.2-16.2); Mean Corpuscular Hemoglobin 30.9 pg (28.0-32.0); Mean Corpuscular Hgb Conc. 31.9 g/dL (32.0-36.0); Mean Corpuscular Volume 97.1 fL (80.0-100.0); Monocytes # (auto) 0.7 10 ^3/uL (0-1.3); Monocytes % (auto) 11.2 % (0.0-12.0); Neutrophils # (auto) 4.4 10 ^3/uL (1.6-8.6); Neutrophils % (auto) 68.8 % (37.0-80.0); Nucleated Red Blood Cells % 0.2 %; Red Blood Cells 3.57 10^6/uL (4.0-5.20); Red Cell Distribution Width 17.1 % (11.8-14.3); White Blood Cell 6.4 10^3/uL (4.4-10.8)
[2022-04-27 09:00] VITALS: BP 113/61
[2022-04-27 10:19] LABS: Potassium 4.7 mmol/L (3.5-5.1)
[2022-04-27 10:27] LABS: Albumin 3.1 g/dL (3.4-5.0); BUN/Creatinine Ratio 43.9; Bilirubin, Total 0.8 mg/dL (0.2-1.0); Calcium 8.5 mg/dL (8.5-10.1)
[2022-04-27] MEDS: cefTRIAXone 1GM/50ML D5W 50 ML IV SCH (12:05)
[2022-04-27] MEDS: ENOXAPARIN SOD 40 MG/0.4 ML SYRINGE SC SCH (12:06)
[2022-04-27] MEDS: AZITHROMYCIN 500MG/ 250ML 250 ML IV SCH (12:39)
[2022-04-27 13:00] VITALS: BP 120/66
[2022-04-27] MEDS ORDERED: ALBUTEROL SULF 2.5 MG/0.5ML(0.5%) NEB SOLN NEB PRN (13:30)
[2022-04-27] MEDS ORDERED: IPRATROPIUM BROM 0.5 MG/2.5ML INH SOL NEB PRN (13:30)
[2022-04-27 16:58] VITALS: BP 111/74
[2022-04-27] MEDS: FUROSEMIDE 40 MG/4 ML VIAL IV ONE ×2 (19:27→20:23)
[2022-04-27 20:20] VITALS: BP 111/74
[2022-04-27 22:00] VITALS: BP 124/69
[2022-04-28 05:00] VITALS: BP 116/68
[2022-04-28 07:43] LABS: Basophils # (auto) 0 10 ^3/uL (0-0.2); Basophils % (auto) 0.3 % (0.0-2.0); Eosinophils # (auto) 0.3 10 ^3/uL (0-0.8); Eosinophils % (auto) 5.7 % (0.0-7.0); Hematocrit 34.1 % (36.0-46.0); Hemoglobin 11.2 g/dL (12.2-16.2); Lymphocytes # (auto) 0.7 10 ^3/uL (0.4-5.4); Lymphocytes % (auto) 12.3 % (10.0-50.0); Mean Corpuscular Hemoglobin 31.9 pg (28.0-32.0); Mean Corpuscular Volume 96.7 fL (80.0-100.0); Monocytes # (auto) 0.6 10 ^3/uL (0-1.3); Monocytes % (auto) 11.6 % (0.0-12.0); Neutrophils # (auto) 3.9 10 ^3/uL (1.6-8.6); Neutrophils % (auto) 70.1 % (37.0-80.0); Nucleated Red Blood Cells % 0.6 %; Red Blood Cells 3.52 10^6/uL (4.0-5.20); Red Cell Distribution Width 17.4 % (11.8-14.3); White Blood Cell 5.5 10^3/uL (4.4-10.8)
[2022-04-28 08:05] LABS: Sodium 133 mmol/L (136-145)
[2022-04-28 08:06] LABS: Anion Gap 8 (5-15); BUN/Creatinine Ratio 44.6; Blood Urea Nitrogen 41 mg/dL (7-18); Calcium 8.2 mg/dL (8.5-10.1); Carbon Dioxide 23 mmol/L (21-32); Chloride 102 mmol/L (98-107); Cholesterol 120 mg/dL (< 200); GFR African American 76 mL/min; GFR Non-African American 63 mL/min; Glucose 173 mg/dL (74-106); HDL Cholesterol 48 mg/dL (40-59); LDL Cholesterol 67 mg/dL (< 100); Triglycerides 123 mg/dL (< 150)
[2022-04-28 09:00] VITALS: BP 124/70
[2022-04-28] MEDS: cefTRIAXone 1GM/50ML D5W 50 ML IV SCH (12:40)
[2022-04-28] MEDS: ENOXAPARIN SOD 40 MG/0.4 ML SYRINGE SC SCH (12:40)
[2022-04-28] MEDS: NYSTATIN (MOUTH-THROAT) 500,000 UNITS/5 ML SUSP MT SCH ×3 (12:40→23:59)
[2022-04-28] MEDS: FUROSEMIDE 40 MG/4 ML VIAL IV SCH ×2 (12:44→18:00)
[2022-04-28 13:00] VITALS: BP 102/59
[2022-04-28] MEDS: DOXYCYCLINE 100MG/250ML 250 ML IV SCH ×2 (13:43→23:59)
[2022-04-28 17:00] VITALS: BP 114/55
[2022-04-28 22:00] VITALS: BP 107/59
[2022-04-29 05:00] VITALS: BP 119/56
[2022-04-29] MEDS: FUROSEMIDE 40 MG/4 ML VIAL IV SCH ×2 (06:00→18:23)
[2022-04-29] MEDS: NYSTATIN (MOUTH-THROAT) 500,000 UNITS/5 ML SUSP MT SCH ×4 (06:47→22:00)
[2022-04-29 08:10] VITALS: BP 107/66
[2022-04-29 09:24] VITALS: BP 107/66
[2022-04-29] MEDS: cefTRIAXone 1GM/50ML D5W 50 ML IV SCH (10:35)
[2022-04-29] MEDS: ENOXAPARIN SOD 40 MG/0.4 ML SYRINGE SC SCH (10:35)
[2022-04-29] MEDS: DOXYCYCLINE 100MG/250ML 250 ML IV SCH ×2 (12:54→23:29)
[2022-04-29 13:00] VITALS: BP 111/51
[2022-04-29 17:20] VITALS: BP 112/67
[2022-04-29 22:00] VITALS: BP 105/71
[2022-04-30 05:00] VITALS: BP 106/50
[2022-04-30] MEDS: FUROSEMIDE 40 MG/4 ML VIAL IV SCH ×2 (06:19→18:13)
[2022-04-30] MEDS: NYSTATIN (MOUTH-THROAT) 500,000 UNITS/5 ML SUSP MT SCH ×5 (06:20→23:27)
[2022-04-30 09:00] VITALS: BP 124/69
[2022-04-30] MEDS: cefTRIAXone 1GM/50ML D5W 50 ML IV SCH (09:29)
[2022-04-30] MEDS: ENOXAPARIN SOD 40 MG/0.4 ML SYRINGE SC SCH (09:29)
[2022-04-30] MEDS: DOXYCYCLINE 100MG/250ML 250 ML IV SCH ×2 (11:32→23:27)
[2022-04-30 13:00] VITALS: BP 123/66
[2022-04-30 22:00] VITALS: BP 112/59
[2022-05-01 05:00] VITALS: BP 112/58
[2022-05-01 05:16] LABS: Basophils # (auto) 0.1 10 ^3/uL (0-0.2); Basophils % (auto) 1.3 % (0.0-2.0); Eosinophils # (auto) 0.2 10 ^3/uL (0-0.8); Eosinophils % (auto) 2.2 % (0.0-7.0); Hematocrit 35.2 % (36.0-46.0); Hemoglobin 11.4 g/dL (12.2-16.2); Mean Corpuscular Hemoglobin 31.4 pg (28.0-32.0); Mean Corpuscular Hgb Conc. 32.3 g/dL (32.0-36.0); Mean Corpuscular Volume 97.1 fL (80.0-100.0); Monocytes # (auto) 0.7 10 ^3/uL (0-1.3); Monocytes % (auto) 8.2 % (0.0-12.0); Neutrophils # (auto) 6.5 10 ^3/uL (1.6-8.6); Neutrophils % (auto) 76.3 % (37.0-80.0); Nucleated Red Blood Cells % 0.2 %; Red Blood Cells 3.63 10^6/uL (4.0-5.20); Red Cell Distribution Width 17.6 % (11.8-14.3); White Blood Cell 8.5 10^3/uL (4.4-10.8)
[2022-05-01 05:37] LABS: Anion Gap 14 (5-15); Blood Urea Nitrogen 29 mg/dL (7-18); Calcium 8.1 mg/dL (8.5-10.1); Carbon Dioxide 23 mmol/L (21-32); Chloride 101 mmol/L (98-107); Glucose 310 mg/dL (74-106); Magnesium 1.5 mg/dL (1.6-2.6); Potassium 3.9 mmol/L (3.5-5.1); Sodium 138 mmol/L (136-145)
[2022-05-01 05:39] LABS: BUN/Creatinine Ratio 29.9; GFR African American 71 mL/min; GFR Non-African American 59 mL/min
[2022-05-01] MEDS: NYSTATIN (MOUTH-THROAT) 500,000 UNITS/5 ML SUSP MT SCH ×4 (06:00→20:45)
[2022-05-01] MEDS: FUROSEMIDE 40 MG/4 ML VIAL IV SCH ×2 (06:41→18:28)
[2022-05-01 09:00] VITALS: BP 110/70
[2022-05-01 09:48] VITALS: BP 114/54
[2022-05-01] MEDS: cefTRIAXone 1GM/50ML D5W 50 ML IV SCH (09:51)
[2022-05-01] MEDS: ENOXAPARIN SOD 40 MG/0.4 ML SYRINGE SC SCH (09:51)
[2022-05-01] MEDS: DOXYCYCLINE 100MG/250ML 250 ML IV SCH (11:58)
[2022-05-01 13:00] VITALS: BP 120/60
[2022-05-01] MEDS: HYDROcodone-ACET 5/325MG TAB PO PRN ×2 (16:38→20:58)
[2022-05-01 17:00] VITALS: BP 127/77
[2022-05-01] MEDS: MAGNESIUM SULFATE 1GM/100ML 100 ML IV SCH ×2 (18:24→20:38)
[2022-05-01] MEDS: MAGNESIUM OXIDE 400 MG TAB PO SCH (20:58)
[2022-05-01 22:00] VITALS: BP 117/73
[2022-05-02] MEDS: DOXYCYCLINE 100MG/250ML 250 ML IV SCH ×2 (01:56→11:40)
[2022-05-02] MEDS: HYDROcodone-ACET 5/325MG TAB PO PRN (03:25)
[2022-05-02 05:00] VITALS: BP 150/86
[2022-05-02] MEDS: NYSTATIN (MOUTH-THROAT) 500,000 UNITS/5 ML SUSP MT SCH ×4 (06:00→21:39)
[2022-05-02] MEDS: FUROSEMIDE 40 MG/4 ML VIAL IV SCH ×2 (06:00→18:03)
[2022-05-02 06:04] LABS: Calcium 8.4 mg/dL (8.5-10.1); Magnesium 2.1 mg/dL (1.6-2.6)
[2022-05-02 06:09] LABS: BUN/Creatinine Ratio 30.4
[2022-05-02 08:00] VITALS: BP 131/75
[2022-05-02 09:00] VITALS: BP 131/75
[2022-05-02] MEDS: ENOXAPARIN SOD 40 MG/0.4 ML SYRINGE SC SCH (10:08)
[2022-05-02] MEDS: cefTRIAXone 1GM/50ML D5W 50 ML IV SCH (10:08)
[2022-05-02] MEDS: MAGNESIUM OXIDE 400 MG TAB PO SCH ×2 (10:08→21:39)
[2022-05-02 13:00] VITALS: BP 121/72
[2022-05-02] MEDS ORDERED: POTASSIUM CHL 20 Meq TABLET PO ONE (13:00)
[2022-05-02] MEDS ORDERED: DEXTROSE (50%) 50ML SYRG IV PRN (13:15)
[2022-05-02 16:56] VITALS: BP 129/76
[2022-05-02] MEDS: ACCU-CHEK COMFORT CURVE STRIP VI SCH ×2 (17:28→21:43)
[2022-05-02] MEDS: SPIRONOLACTONE 25 MG TAB PO SCH (18:02)
[2022-05-02] MEDS: metFORMIN HYDROCHLORIDE 500 MG TAB PO SCH (18:03)
[2022-05-02] MEDS: InsuLIN REG 1unit/0.01ml Soln (100units/ml) SC SCH (18:11)
[2022-05-02 20:00] VITALS: BP 131/75
[2022-05-02] MEDS: INSULIN LANTUS (GLARGINE) 1 /0.01ml (100units/ml) SC SCH (21:42)
[2022-05-02] MEDS ORDERED: InsuLIN REG 1unit/0.01ml Soln (100units/ml) SC SCH (22:00)
[2022-05-03] VITALS (7 sets, daily range): BP systolic 93–120; BP diastolic 45–68
[2022-05-03] MEDS: DOXYCYCLINE 100MG/250ML 250 ML IV SCH ×3 (01:45→23:13)
[2022-05-03] MEDS: NYSTATIN (MOUTH-THROAT) 500,000 UNITS/5 ML SUSP MT SCH ×4 (05:53→22:29)
[2022-05-03 05:59] LABS: Potassium 3.5 mmol/L (3.5-5.1)
[2022-05-03 06:03] LABS: BUN/Creatinine Ratio 37.2; Calcium 8.3 mg/dL (8.5-10.1)
[2022-05-03] MEDS: InsuLIN REG 1unit/0.01ml Soln (100units/ml) SC SCH ×4 (07:00→22:00)
[2022-05-03] MEDS: ACCU-CHEK COMFORT CURVE STRIP VI SCH ×4 (07:03→22:21)
[2022-05-03] MEDS: FUROSEMIDE 40 MG/4 ML VIAL IV SCH ×2 (07:03→18:36)
[2022-05-03] MEDS: SPIRONOLACTONE 25 MG TAB PO SCH ×2 (07:03→18:37)
[2022-05-03] MEDS ORDERED: DEXTROSE (50%) 50ML SYRG IV PRN (09:30)
[2022-05-03] MEDS: cefTRIAXone 1GM/50ML D5W 50 ML IV SCH (09:42)
[2022-05-03] MEDS: metFORMIN HYDROCHLORIDE 500 MG TAB PO SCH ×2 (09:43→18:36)
[2022-05-03] MEDS: ENOXAPARIN SOD 40 MG/0.4 ML SYRINGE SC SCH (09:43)
[2022-05-03] MEDS: MAGNESIUM OXIDE 400 MG TAB PO SCH ×2 (09:43→22:29)
[2022-05-03] MEDS ORDERED: SILDENAFIL CITRATE 20 MG TAB PO SCH (14:00)
[2022-05-03] MEDS: SILDENAFIL CITRATE 20 MG TAB PO SCH ×2 (14:00→20:00)
[2022-05-03] MEDS: INSULIN LANTUS (GLARGINE) 1 /0.01ml (100units/ml) SC SCH (22:00)
[2022-05-04 05:00] VITALS: BP 89/48
[2022-05-04] MEDS: FUROSEMIDE 40 MG/4 ML VIAL IV SCH (06:00)
[2022-05-04] MEDS: NYSTATIN (MOUTH-THROAT) 500,000 UNITS/5 ML SUSP MT SCH ×2 (06:00→11:59)
[2022-05-04] MEDS: InsuLIN REG 1unit/0.01ml Soln (100units/ml) SC SCH ×2 (06:08→12:00)
[2022-05-04] MEDS: ACCU-CHEK COMFORT CURVE STRIP VI SCH ×2 (06:08→11:59)
[2022-05-04] MEDS: SPIRONOLACTONE 25 MG TAB PO SCH (06:15)
[2022-05-04 07:31] LABS: Basophils # (auto) 0 10 ^3/uL (0-0.2); Basophils % (auto) 0.5 % (0.0-2.0); Eosinophils # (auto) 0.3 10 ^3/uL (0-0.8); Eosinophils % (auto) 5.1 % (0.0-7.0); Hematocrit 31.4 % (36.0-46.0); Hemoglobin 10.1 g/dL (12.2-16.2); Lymphocytes % (auto) 16.3 % (10.0-50.0); Mean Corpuscular Hemoglobin 31.1 pg (28.0-32.0); Mean Corpuscular Hgb Conc. 32.2 g/dL (32.0-36.0); Mean Corpuscular Volume 96.5 fL (80.0-100.0); Monocytes # (auto) 0.4 10 ^3/uL (0-1.3); Monocytes % (auto) 6.6 % (0.0-12.0); Neutrophils # (auto) 4.3 10 ^3/uL (1.6-8.6); Neutrophils % (auto) 71.5 % (37.0-80.0); Nucleated Red Blood Cells % 0.1 %; Red Blood Cells 3.25 10^6/uL (4.0-5.20); Red Cell Distribution Width 17.3 % (11.8-14.3); White Blood Cell 6.1 10^3/uL (4.4-10.8)
[2022-05-04 07:39] LABS: BUN/Creatinine Ratio 35.2; Calcium 7.9 mg/dL (8.5-10.1); Magnesium 1.8 mg/dL (1.6-2.6); Potassium 3.7 mmol/L (3.5-5.1)
[2022-05-04] MEDS: SILDENAFIL CITRATE 20 MG TAB PO SCH (08:00)
[2022-05-04 08:05] VITALS: BP 101/61
[2022-05-04] MEDS ORDERED: SILD20TA PO (08:51)
[2022-05-04] MEDS ORDERED: SPIR25TA PO (08:51)
[2022-05-04 09:00] VITALS: BP 111/49
[2022-05-04] MEDS: metFORMIN HYDROCHLORIDE 500 MG TAB PO SCH (09:23)
[2022-05-04] MEDS: MAGNESIUM OXIDE 400 MG TAB PO SCH (09:23)
[2022-05-04] MEDS: cefTRIAXone 1GM/50ML D5W 50 ML IV SCH ×2 (09:23→09:39)
[2022-05-04] MEDS: ENOXAPARIN SOD 40 MG/0.4 ML SYRINGE SC SCH (09:23)
[2022-05-04] MEDS: DOXYCYCLINE 100MG/250ML 250 ML IV SCH (11:59)
== END 2022-05-04 13:56 | disposition hospice, home (50) | DRG 193 ==
LOC: EDBD 02:28 → ER 02:28 → TELE 08:25 → TELE-WESTW 22:40
PROVIDERS: ADMIT Internal Medicine; ATTEND Internal Medicine Geriatric Medicine
DX: J18.9 Pneumonia, unspecified organism (principal); I50.33 Acute on chronic diastolic (congestive) heart failure; J96.21 Acute and chronic respiratory failure with hypoxia; E87.2 Acidosis; I13.0 Hypertensive heart and chronic kidney disease with heart failure and stage 1 through stage 4 chronic kidney disease, or unspecified chronic kidney disease; J44.0 Chronic obstructive pulmonary disease with (acute) lower respiratory infection; E88.09 Other disorders of plasma-protein metabolism, not elsewhere classified; N18.9 Chronic kidney disease, unspecified; Z20.822 Contact with and (suspected) exposure to COVID-19; E11.22 Type 2 diabetes mellitus with diabetic chronic kidney disease; E78.5 Hyperlipidemia, unspecified; I27.20 Pulmonary hypertension, unspecified; Z90.710 Acquired absence of both cervix and uterus; Z79.899 Other long term (current) drug therapy; Z83.3 Family history of diabetes mellitus; Z99.81 Dependence on supplemental oxygen; Z79.84 Long term (current) use of oral hypoglycemic drugs
CPT/HCPCS: 36415; 71045; 80048; 80053; 80061; 80307; 81001; 82962; 83605; 83735; 83880; 84484; 85025; 87040; 87070; 87205; 93005; 93306; 93971; 96365; 96366; 96367; 96372; 96375; 97110; 97116; 97163; 97530; G0378; J0696; J1815; J3490